=== PATIENT | female | born 1975 | race Hispanic/Latino ===

== ENCOUNTER 2022-07-11 09:34 | Day surgery (SDC) | payer OTHER ==
[2022-07-07 15:47] LABS: Absolute Lymphocytes (CBC) 1.4 K/uL (0.7-4.9); Hematocrit 37.5 % (36.0-45.0); Lymphocytes % 25.7 % (15.3-44.8); MCV 96.1 fL (80-100); MPV 8.3 fL (7.6-11.3)
[2022-07-07 15:54] LABS: Anisocytosis 1+; Blood Morphology Comment NOTED (NOT SEEN); Platelet Estimate ADEQ; White Blood Cell Scan OK (OK)
[2022-07-07 16:12] LABS: Specific Gravity > 1.030 (1.005-1.030); Urine Bacteria None Seen /HPF (<20); Urine Bilirubin NEGATIVE (Negative); Urine Blood 1+ (Negative); Urine Clarity Clear (Clear); Urine Color Yellow (Yellow); Urine Glucose NEGATIVE (Negative); Urine Mucus 4+ /HPF (None Seen); Urine Protein 1+ (Negative); Urine Urobilinogen 1+ (Normal)
[2022-07-11 10:08] LABS: Urine Specific Gravity/Preg >1.030 (1.005-1.030)
[2022-07-11] MEDS ORDERED: Ringers Lactate 1,000 ML IV ONE ×2 (10:17→13:54)
[2022-07-11] MEDS ORDERED: SCOPOLAMINE HYDROBROMIDE PATCH TD ONE (10:17)
[2022-07-11] MEDS ORDERED: HEPARIN 5000 UNIT/ML 1 ML VIAL ONE (10:17)
[2022-07-11] MEDS ORDERED: ROCURONIUM 50 MG/5 ML VIAL IV ONE (11:14)
[2022-07-11] MEDS ORDERED: propofoL 200 MG/20 ML VIAL IV ONE (11:14)
[2022-07-11] MEDS ORDERED: dexAMETHasone 10 MG/ML VIAL ONE (11:14)
[2022-07-11] MEDS ORDERED: MIDAZOLAM HCL 2 MG/2 ML INJ ONE (11:15)
[2022-07-11] MEDS ORDERED: FENTANYL CITR 250 MCG/5 ML ONE (11:15)
[2022-07-11] MEDS ORDERED: LIDOCAINE 2% MPF 5 ML VIAL ONE (11:15)
[2022-07-11] MEDS ORDERED: NS 0.9% VIAL 20 ML ONE (11:15)
[2022-07-11] MEDS ORDERED: KETAMINE HCL 500 MG/5 ML VIAL ONE (11:15)
[2022-07-11] MEDS ORDERED: ONDANSETRON 4 MG/2 ML VIAL ONE ×2 (11:17→15:13)
[2022-07-11] MEDS: CEFAZOLIN SODIUM 2 GM/VIAL ONE ×3 (11:59→13:13)
[2022-07-11] MEDS ORDERED: KETOROLAC 30 MG/ML INJ ONE (14:30)
[2022-07-11] MEDS ORDERED: Mastisol Adhesive Liq ONE (14:44)
[2022-07-11] MEDS ORDERED: PROMETHAZINE INJ 25 MG/ML AMP IV PRN (14:50)
[2022-07-11] MEDS ORDERED: IBUPROFEN 200 MG TAB PO PRN (14:50)
[2022-07-11] MEDS ORDERED: HYDROCODONE/APAP 5/325 MG TAB PO PRN (14:50)
[2022-07-11] MEDS ORDERED: MEPERIDINE HCL 25 MG/ML SYR IM PRN (14:50)
--- NOTE | 2022-07-11 14:54 | P.BOP ---
Preoperative diagnosis: menorrhagia, deep dyspareunia Postoperative diagnosis: same, bladder adhesions Primary procedure: TLH BS cystoscopy Route Delivery Manager: Soco Saleh Estimated blood loss: min Specimen: uterus tubes Findings: scar of c/section, cysto patent ureters Anesthesia: General Complications: None Transferred to: Recovery Room Condition: Good
[2022-07-11] MEDS ORDERED: HYDROCODONE/APAP 7.5/325 MG TAB ONE (16:35)
[2022-07-11 17:42] VITALS: BP 124/54; TEMP 98
[2022-07-11 17:44] VITALS: O2SAT 98
[2022-07-11] MEDS ORDERED: HOME MED 1 EA UNK (Eszopiclone [Lunesta] 3 MG Tablet) PO SCH (21:00)
--- NOTE | 2022-07-12 04:29 | OP ---
Date of Procedure: 07/11/2022 Surgeon: Arabella Wylie MD Outside Plant Technician: Soco Hayward. Preoperative Diagnoses: Menorrhagia and deep dyspareunia. Postoperative Diagnoses: Menorrhagia, deep dyspareunia, bladder adhesion, possible isthmocele at the scar. Procedures Performed: Total laparoscopic hysterectomy, bilateral salpingectomy, lysis of the bladder adhesion, and cystoscopy. Estimated Blood Loss: Minimal. Specimens: Uterus and tubes. Anesthesia: General endotracheal. Complications: No complications. Drains: No drains. Condition: Stable. Findings: Scar of the section was seen, which was suspected as isthmocele especially on the left side where the pelvic stitches opened up while the cuff was being dissected or the blood vessel s were being dissected. When cystoscopy was performed, there were patent ureters. No evidence of tr auma to the bladder. Strong jets of urine from ureteric orifices. Transferred to the recovery room in a stable condition. Indication: The patient is a 47-year-old, multigravid, with significant bleeding and clots with deep dyspareunia especially positional. Discussed about all the different options after ultrasound and e ndometrial sampling were performed. The patient is status post 2 sections, adenomyosis, and endometriosis. All these were alternatives for all these possible etiologies that could cause her p ain. Discussed about and patient was given options about an IUD, endometrial ablation, and hysterect michael besides medications. She has failed conservative treatment options and she was consented for hys terectomy as this was what she wanted to proceed with. Possible endometriosis excision for treatment of pain was all reviewed. She understood that there is a small chance that the dyspareunia could no t be better and despite this she was done with childbearing and wanted to proceed with the hysterecto my for definitive treatment. Description Of Procedure: She was consented and brought to the OR. 2 g of Ancef was given. SCDs we re placed. Heparin subcu was given as she had questionable history of being given heparin subcu with all of her procedures although there is no evidence of DVT historically. She was taken back to the OR, placed in supine fashion on the operating table. Time-out was done. After arms were tucked by t he side and general anesthesia was given and she was placed in dorsal lithotomy position. Abdomen wa s prepped with ChloraPrep and vulva, vagina, and perineum prepped with Betadine. Webb was placed to drain the bladder and attached to retrograde filling. A large VCare was introduced into the uterus after the cervix was dilated. The uterus was significantly retroflexed and the cervix was very anter ior and after the vaginal manipulator was fixed in place, this area was draped. A 1 cm infraumbilica l incision was made with scalpel, after injecting dilute 0.5% Marcaine, 5 cc injected at the skin at the umbilicus and an incision made with a 15 blade, 1 cm incision. Fascia was incised and tagged wit h 0 Vicryl. Peritoneum entered sharply. Shikha introduced. Site of entry was checked and was unrem arkable. Upper abdominal surface was unremarkable. The patient was placed in Trendelenburg. Lower abdominal surfaces were carefully examined, anteriorly, posteriorly, and lateral wall. No evidence o f any endometriosis was seen. Significant scarring was seen, however, especially in the anterior vaginal wall from her sec tions. After 10 and 12 suprapubic and 5 left lower quadrant and right lower quadrant ports were placed, then procedure was started. The left tube was taken down with the help of the LigaSure. At the site of the tubal ligation, a remnant was present and this was handed off for permanent pathology. Then uter o-ovarian ligament and round ligament were taken down with help of the LigaSure. Anterior and insurance underwriter sales ior broad ligaments opened up posteriorly and taken down to the level of cuff and anteriorly taken do wn to the level of anterior vaginal wall, dissecting the uterine vessels although not transecting at this time. Similar dissection was performed on the opposite side, taking down the right tube, utero- ovarian ligament, round ligament, and anterior broad ligament. Anteriorly connected for a bladder fl ap and bladder was transected sharply, opening up the vesicovaginal space and then retracting this do wn. Posteriorly peritoneum was opened up to the level of the insertion of the uterosacral and once t his was done, vessels were fully exposed and the uterus was identified . The vessels were taken down with the help of LigaSure and bipolar and monopolar. Cardinal ligaments were taken down a s well as uterosacral attachments on the left especially. Then circumferential colpotomy was perform ed with monopolar hook blade. Specimen was pulled out through the vagina. Proximal parts of the tub e were attached, but distal parts handed out separately in the specimen cut. Thorough irrigation and suction were performed. Vaginal occluder was placed. Vaginal cuff was closed in 2 layers using the V-Loc. There was excellent support and closure. Thorough irrigation and suction were performed. B ladder was filled retrograde to observe for any evidence of leakage. There was none and there was go od visualization of the bladder. Very superficial detrusor lacerations from dissection of the bladde r from her scar were pushed inferiorly. On the left side as I was opening up the anterior vaginal wall and cardinal ligament, there was openi ng into the isthmocele that was present with no significant defect. After all the surgery was completed, all the trocars were removed under direct visualization and fasc ia was closed with the help of 0 Vicryl sutures tacked to the edges. They were tied together and sim ple 3-0 Monocryl was placed through interrupted suture closure at all incision sites. Once cystoscop y was performed, strong jets of urine were seen from both ureteric orifices. There was reassurance t hat they were patent. There was a small area right above the right UO, slightly medial to it and abo ve the trigone. The bladder appeared to be more fixed than the other side, likely in the area of the hysterectomy from all the suturing. Once patency and no evidence of any trauma were confirmed, the patient was recovered from anesthesia and taken to PACU in stable condition. She will follow up in 1 week. SANTY/PADDY Voice ID: [id number] Report ID: [id number]
[2022-07-12] MEDS ORDERED: LISDEXAMFETAMINE DIMESYLATE 70 MG PO SCH (09:00)
[2022-07-12] MEDS ORDERED: HOME MED 1 EA UNK (Venlafaxine Hcl [Venlafaxine Hcl Er] 150 MG Cap.Er.24h) PO SCH (09:00)
[2022-07-12] MEDS ORDERED: HOME MED 1 EA UNK (Omeprazole [Prilosec] 40 MG Capsule.Dr) PO SCH (09:00)
[2022-07-12] MEDS ORDERED: FERROUS FUMARATE 324 MG PO SCH (17:00)
== END 2022-07-11 17:35 | disposition home or self-care (01) ==
LOC: OR 09:34
PROVIDERS: ATTEND Obstetrics & Gynecology
PROC: 0UT74ZZ Resection of Bilateral Fallopian Tubes, Percutaneous Endoscopic Approach (ICD-10-PCS; 2022-07-11)
PROC: 0UT94ZZ Resection of Uterus, Percutaneous Endoscopic Approach (ICD-10-PCS; principal; 2022-07-11 11:15)
DX: N92.0 Excessive and frequent menstruation with regular cycle (principal); N94.12 Deep dyspareunia; N32.89 Other specified disorders of bladder
CPT/HCPCS: 85025; 81001; 36415; 86900; 86850; 81025; 86901; 58571; J2704; J1644; J2001; J2250; J3010; J1100; A4216; J7120 ×2; J2405 ×2; 88307